=== PATIENT | female | born 1995 | race Caucasian/White ===

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

== ENCOUNTER 2017-11-15 15:50 | Emergency (ER) | payer OTHER ==
[~2017-11-15] VITALS: Ht 170.2 cm; Wt 65.8 kg
[~2017-11-15 15:50] MED LIST: BCPILLS PO
[2017-11-15 15:54] VITALS: Ht 170.2 cm; Wt 65.8 kg
[2017-11-15] MEDS ORDERED: KETOROLAC TROMETHAMINE 30 MG/ML VIAL IV STA (16:15)
[2017-11-15] MEDS ORDERED: SODIUM CHLORIDE 0.9% 1000ML 1,000 ML IV STA (16:15)
[2017-11-15] MEDS ORDERED: PHEN95TA14 PO (16:30)
[2017-11-15 16:52] LABS: BASO % 0.4 %; BASO ABS # 0.03 K/uL (0-0.2); EOS % 1.2 %; EOS ABS # 0.08 K/uL (0-0.5); HEMATOCRIT 40.2 % (37-47); HEMOGLOBIN 13.3 g/dL (12.0-16.0); IG# 0.01 K/uL (0.00-0.02); LYMPH % 29.1 %; LYMPH ABS # 1.99 K/uL (1.2-3.4); MEAN CELL VOLUME 88.7 fL (80-100); MEAN CORPUSCULAR HEMOGLOBIN 29.4 pg (25-34); MEAN CORPUSCULAR HGB CONC 33.1 g/dl (32-36); MEAN PLATELET VOLUME 10.7 fL (7.4-10.4); MONO % 8.1 %; MONO ABS # 0.55 K/uL (0.11-0.59); NEUT % 61.1 %; NEUT ABS # 4.17 K/uL (1.4-6.5); PLATELET COUNT 218 K/uL (130-400); RED CELL DISTRIBUTION WIDTH SD 42.1 fL (36.4-46.3); WHITE BLOOD COUNT 6.83 K/uL (4.8-10.8)
--- NOTE | 2017-11-15 17:11 | DIAGNOSTIC IMAGING REPORT ---
(RENAL)RETROPERITON COMP HISTORY: 22 years-old Female R FLANK PAIN, UTI SYMPTOMS acute right-sided flank pain with urinary tract infection type symptoms COMPARISON: None available TECHNIQUE: Multiple real-time sonographic images of the kidneys and urinary bladder were obtained assessing grayscale appearance and color flow FINDINGS: The right kidney measures 11.2 cm in length and is within normal limits without renal calculi, hydronephrosis or focal mass lesion identified. Left kidney measures up to 11.6 cm in length and is also within normal limits without renal calculi, hydronephrosis or focal renal mass lesions. Urinary bladder is within normal limits with ureteral jets not identified. Imaged uterus appears unremarkable. IMPRESSION: Unremarkable sonographic appearance of the kidneys and urinary bladder without renal calculi or hydronephrosis. The above report was generated using voice recognition software. It may contain grammatical, syntax or spelling errors. Electronically signed by: Toan Watson M.D. 11/15/2017 5:09 PM Dictated Date/Time: 11/15/2017 5:08 PM
[2017-11-15 17:12] LABS: CALCIUM 9.2 mg/dl (8.5-10.1); CREATININE 0.98 mg/dl (0.60-1.20); POTASSIUM 3.8 mmol/L (3.5-5.1)
[2017-11-15 17:19] VITALS: TEMP 37.3
--- NOTE | 2017-11-15 17:22 | DIAGNOSTIC IMAGING REPORT ---
KUB HISTORY: UTI SYMPTOMS, R FLANK PAIN COMPARISON: None. FINDINGS: The bowel gas pattern is unremarkable. There are no dilated loops of small bowel to suggest an obstruction. No renal calculi. No ureteral calculi. No pneumoperitoneum or pneumatosis. IMPRESSION: No renal or ureteral stones. Electronically signed by: Luan Gatica M.D. 11/15/2017 5:20 PM Dictated Date/Time: 11/15/2017 5:18 PM
[2017-11-15] MEDS ORDERED: CEFTRIAXONE SOD INJ 1 GM ADDVIAL IV STA (17:43)
[2017-11-15] MEDS ORDERED: PHEN-876 PO (17:52)
[2017-11-15] MEDS ORDERED: CIPR-255 PO (17:52)
--- NOTE | 2017-11-15 17:53 | EMERGENCY ROOM VISIT NOTE ---
History First contact with patient: 15:59 Chief Complaint: URINARY SYMPTOMS Stated Complaint: KIDNEY PAIN History of Present Illness Patient is an otherwise healthy 22-year-old female who presents to the emergency department for evaluation of UTI symptoms with associated right flank pain. Patient states that her UTI symptoms started yesterday, she noted urinary frequency and a lot of pain with urination. She began using over-the- counter Azo. She reports that she has had a few UTIs in the past, but not frequent UTIs, and states that this did feel similar. Today, she reports that she was getting ready to make some food, when she had the fairly abrupt onset of right flank pain with associated nausea, cold sweats, and a sensation that she was going to pass out. She states that at its worst the pain was a 6/10, and the pain lasted for roughly 10-15 minutes, then improved. She did have an episode of diarrhea after the near syncopal episode. She did not completely lose consciousness. She states that she drinks some fluids afterwards, and began to feel better. She notes some suprapubic discomfort as well. She presently rates her pain a 3/10. She denies any vomiting. No vaginal discharge. She is on an oral contraceptive, and takes this continuously therefore does not get regular menstrual periods. She is sexually active. She denies any history of abdominal surgeries. She denies any prior history, either personal or family, of kidney stones. Review of Systems Review of systems as per HPI. All other systems reviewed were negative. 10 systems reviewed. Past Medical/Surgical History Medical Problems: (1) Cervical lymphadenopathy (2) No known health problems Electronic medical records are reviewed and summarized as above/below. See Problem List. Family History No pertinent family history Social History Smoking Status: Never Smoker Marital Status: single Housing Status: lives with roommate Occupation Status: [employer] student Current/Historical Medications Scheduled Control Pills ( Control Pills), 1 TAB PO DAILY Ciprofloxacin Hcl (Cipro), 500 MG PO BID Phenazopyridine HCl (Pyridium), 200 MG PO TID Phenazopyridine Hcl (Azo Tabs), 190 MG PO TID Physical Exam Vital Signs Date Time Temp Pulse Resp B/P (MAP) Pulse Ox O2 Delivery O2 Flow Rate FiO2 11/15/17 18:07 82 18 128/83 96 11/15/17 17:19 37.3 82 18 120/79 97 Room Air 11/15/17 15:54 36.9 98 18 124/83 99 Room Air Physical Exam CONSTITUTIONAL: Patient is a well-appearing 22-year-old white female who is awake and alert and in no acute distress. EYES: Pupils equal, round, reactive to light and accommodation. EOMs intact without nystagmus. Sclera are anicteric. ENT: Tympanic membranes intact, with normal landmarks. External canals are clear. Oral and nasopharynx are clear. Mucous membranes are moist, no lesions , tongue and gums appear normal. NECK: Supple without lymphadenopathy. No thyromegaly. No meningeal signs. Full active range of motion without discomfort. CARDIOVASCULAR: Regular rate and rhythm, with normal S1 and S2, no murmur or gallop or rub is heard. No carotid bruits auscultated. No JVD. Peripheral pulses easily palpable. RESPIRATORY: Breath sounds equal and clear to auscultation without wheezes, rales, or rhonchi heard. Full and equal chest expansion without accessory muscle use or retractions. ABDOMEN: Bowel sounds are present. Abdomen is soft, scaphoid, nontender and nondistended. She is nontender to percussion and palpation throughout. There is no pain in the right lower quadrant over McBurney's point. No guarding or rebound. No CVA tenderness. INTEGUMENTARY: No lesions or rash, normal skin turgor. LYMPH: No lymphadenopathy. Medical Decision & Procedures ER Provider Diagnostic Interpretation: KUB HISTORY: UTI SYMPTOMS, R FLANK PAIN COMPARISON: None. FINDINGS: The bowel gas pattern is unremarkable. There are no dilated loops of small bowel to suggest an obstruction. No renal calculi. No ureteral calculi. No pneumoperitoneum or pneumatosis. IMPRESSION: No renal or ureteral stones. [~ rep ct add3]] (RENAL)RETROPERITON COMP HISTORY: 22 years-old Female R FLANK PAIN, UTI SYMPTOMS acute right-sided flank pain with urinary tract infection type symptoms COMPARISON: None available TECHNIQUE: Multiple real-time sonographic images of the kidneys and urinary bladder were obtained assessing grayscale appearance and color flow FINDINGS: The right kidney measures 11.2 cm in length and is within normal limits without renal calculi, hydronephrosis or focal mass lesion identified. Left kidney measures up to 11.6 cm in length and is also within normal limits without renal calculi, hydronephrosis or focal renal mass lesions. Urinary bladder is within normal limits with ureteral jets not identified. Imaged uterus appears unremarkable. IMPRESSION: Unremarkable sonographic appearance of the kidneys and urinary bladder without renal calculi or hydronephrosis. Laboratory Results 11/15/17 16:32 Red Blood Count 4.53, Mean Corpuscular Volume 88.7, Mean Corpuscular Hemoglobin 29.4, Mean Corpuscular Hemoglobin Concent 33.1, Mean Platelet Volume 10.7, Neutrophils (%) (Auto) 61.1, Lymphocytes (%) (Auto) 29.1, Monocytes (%) (Auto) 8.1, Eosinophils (%) (Auto) 1.2, Basophils (%) (Auto) 0.4, Neutrophils # (Auto) 4.17, Lymphocytes # (Auto) 1.99, Monocytes # (Auto) 0.55, Eosinophils # (Auto) 0.08, Basophils # (Auto) 0.03 11/15/17 16:32 Test 11/15/17 16:03 11/15/17 16:32 Urine Color ORANGE Urine Appearance CLEAR (CLEAR) Urine pH (4.5-7.5) Urine Specific [place] 1.010 (1.000-1.030) Urine Protein (NEG) Urine Glucose (UA) (NEG) Urine Ketones (NEG) Urine Occult Blood (NEG) Urine Nitrite (NEG) Urine Bilirubin (NEG) Urine Urobilinogen (NEG) Urine Leukocyte Esterase (NEG) Urine RBC 0-4 /hpf (0-4) Urine WBC 10-30 /hpf (0-5) Urine Epithelial Cells >30 /lpf (0-5) Urine Bacteria 1+ (NEG) Urine Hyaline Casts 5-10 /lpf (0-5) Urine Granular Casts 1-5 /lpf (0) Urine Mucus PRESENT (NONE PRSENT) Urine Test NEG (NEG) White Blood Count 6.83 K/uL (4.8-10.8) Red Blood Count 4.53 M/uL (4.2-5.4) Hemoglobin 13.3 g/dL (12.0-16.0) Hematocrit 40.2 % (37-47) Mean Corpuscular Volume 88.7 fL (80-100) Mean Corpuscular Hemoglobin 29.4 pg (25-34) Mean Corpuscular Hemoglobin Concent 33.1 g/dl (32-36) Platelet Count 218 K/uL (130-400) Mean Platelet Volume 10.7 fL (7.4-10.4) Neutrophils (%) (Auto) 61.1 % Lymphocytes (%) (Auto) 29.1 % Monocytes (%) (Auto) 8.1 % Eosinophils (%) (Auto) 1.2 % Basophils (%) (Auto) 0.4 % Neutrophils # (Auto) 4.17 K/uL (1.4-6.5) Lymphocytes # (Auto) 1.99 K/uL (1.2-3.4) Monocytes # (Auto) 0.55 K/uL (0.11-0.59) Eosinophils # (Auto) 0.08 K/uL (0-0.5) Basophils # (Auto) 0.03 K/uL (0-0.2) RDW Standard Deviation 42.1 fL (36.4-46.3) RDW Coefficient of Variation 13.0 % (11.5-14.5) Immature Granulocyte % (Auto) 0.1 % Immature Granulocyte # (Auto) 0.01 K/uL (0.00-0.02) Anion Gap 5.0 mmol/L (3-11) Est Creatinine Clear Calc Drug Dose 89.1 ml/min Estimated GFR () 96.2 Estimated GFR (Non- 83.0 BUN/Creatinine Ratio 12.8 (10-20) Calcium Level 9.2 mg/dl (8.5-10.1) Medications Administered Medications (Trade) Dose Ordered Sig/Jn Route Start Time Stop Time Status Last Admin Dose Admin Sodium Chloride 1,000 ml @ 999 mls/hr Q1H1M STAT IV 11/15/17 16:15 11/15/17 17:15 DC 11/15/17 16:38 999 MLS/HR Ketorolac Tromethamine (Toradol Inj) 30 mg NOW STAT IV 11/15/17 16:15 11/15/17 16:17 DC 11/15/17 16:38 30 MG Ceftriaxone Sodium (Rocephin Inj) 1 gm NOW STAT IV 11/15/17 17:43 11/15/17 17:44 DC 11/15/17 17:51 1 GM ED Course The patient was seen and evaluated as above. Old records were reviewed. IV lock was initiated and she was hydrated with normal saline solution. She was medicated with Toradol 30 mg IV. Urinalysis was collected, and sent for microscopy. test was negative. CBC with differential and VT PE were drawn. KUB and retroperitoneal ultrasound. Patient's laboratory studies were fairly benign. There is no leukocytosis, no left shift or bandemia electrolytes are within normal limits. Renal function is normal. Urinalysis, difficult to interpret due to the Azo, shows 10-30 mL, no significant RBCs, 1+ bacteria. Sample is contaminated with greater than 30 epithelial cells. She also has casts and mucus. Nonetheless, given her presenting symptoms, urine culture was ordered and is pending. KUB did not demonstrate any obvious urinary calculi or ureteral stone. There was no evidence for bowel obstruction. No pneumoperitoneum. Retroperitoneal ultrasound noted the kidneys to be within normal size, without evidence of renal calculi, hydronephrosis or mass. On reassessment, the patient reported that her symptoms had improved. Differential diagnoses entertained included UTI, cystitis, pyelonephritis, renal colic, PID,, musculoskeletal pain, among others. The patient presents the emergency department with UTI symptoms. She had an episode of short-lived right flank pain. She does not have significant hematuria, KUB and ultrasound are not overtly worrisome for stone. Labs and urinalysis are not overtly indicative of pyelonephritis, however, given her symptoms she was treated with Rocephin 1 g IV empirically, and will be discharged home on Cipro pending the urine culture. She was educated on the worrisome signs or symptoms for which she should return to the emergency department. The patient was discharged home in excellent condition in the care of her friends. She rated her pain Medical Decision See Emergency Department course. Medication Reconcilliation Current Medication List: was personally reviewed by nm Blood Pressure Screening Patient's blood pressure: Normal blood pressure Blood pressure disposition: Did not require urgent referral Impression Primary Impression: Urinary tract infection Additional Impression: Right flank pain Departure Information Prescriptions Phenazopyridine HCl (Pyridium) 200 Mg Tab 200 MG PO TID, #10 TAB Prov: Tracey Monsivais PA 11/15/17 Ciprofloxacin Hcl (CIPRO) 500 Mg Tab 500 MG PO BID, #20 TAB Prov: Tracey Monsivais PA 11/15/17 Referrals No Doctor, Assigned (PCP) Patient Instructions My [facility] Additional Instructions Ciprofloxacin(Cipro) 500mg: Take one pill twice daily for 10 days for your urine infection. All antibiotics can cause diarrhea. If this occurs and you feel worse or it does not resolve in 1-2 days follow up with your doctor or return to the Emergency Department as this could be signs of serious underlying problems. If you experience any pain in your tendons/joints or any tendon injury return to the ER for re-evaluation. Any medication can cause an allergic reaction, stop the pills immediately and return to the ER for rash, hives, breathing difficulties, or swelling. Pyridium 200mg: Take one pill three times daily as needed for urinary discomfort. This medication will turn your urine orange. This is normal and nothing to be concerned about. Ibuprofen(Motrin, Advil): may be used for fever or pain. Use 600mg every six hours as needed. Take with food. Avoid using more than 2400mg in a 24 hour period. Do not use 2400mg per day for more than three consecutive days without physician direction. Prolonged inappropriate use can lead to stomach upset or ulcers. This is available over the counter and typically comes in 200mg tablets. (AND/OR) Acetaminophen(Tylenol): may be used for fever or pain. Use 1000mg every eight hours as needed. Avoid using more than 3000mg in a 24 hour period. This is available over the counter. Read all the package inserts or medication information paperwork provided. If you have any questions or concerns call your primary provider, pharmacist or the ER for assistance. Rest and drink plenty of fluids. Continue current medications. Return to the ER immediately for worsening or persistent abdominal pain, vomiting, fevers, back or flank pain, worsening of your condition, or as needed. Follow up with your primary physician within 2-3 days for a recheck of the current condition Problem Qualifiers
[2017-11-15 18:07] VITALS: BP 128/83; PULSE 82; O2SAT 96
== END 2017-11-15 18:07 | disposition home or self-care (01) ==
LOC: C.EDB 15:53
DX: N39.0 Urinary tract infection, site not specified (principal); R10.9 Unspecified abdominal pain; R59.0 Localized enlarged lymph nodes; Z79.3 Long term (current) use of hormonal contraceptives; Z79.899 Other long term (current) drug therapy